=== PATIENT | female | born 1995 | race Hispanic/Latino ===

== ENCOUNTER → 2016-09-14 | Outpatient (CLI) | payer OTHER ==
[~2016-09-14] MED LIST: Prenatal vitamin PO
[2016-09-14 15:21] LABS: MEAN CORPUSCULAR HEMOGLOBIN 31.6 pg (27.0-33.0); MEAN CORPUSCULAR HGB CONC 34.4 g/dl (32.0-36.5); RED CELL DISTRIBUTION WIDTH 12.1 % (11.5-14.5); WHITE BLOOD COUNT 6.4 K/mm3 (4.0-10.0)
[2016-09-14 15:46] LABS: ALBUMIN 3.8 GM/DL (3.2-5.2); ALBUMIN/GLOBULIN RATIO 1.31 (1.00-1.93); ALKALINE PHOSPHATASE 66 U/L (45-117); ALT/SGPT 13 U/L (12-78); ANION GAP 5 MEQ/L (8-16); AST/SGOT 11 U/L (15-37); BILIRUBIN,TOTAL 0.6 MG/DL (0.2-1.0); BLOOD UREA NITROGEN 7 MG/DL (7-18); CALCIUM LEVEL 8.5 MG/DL (8.5-10.1); CARBON DIOXIDE LEVEL 27 MEQ/L (21-32); CHLORIDE LEVEL 106 MEQ/L (98-107); CREATININE FOR GFR 0.71 MG/DL (0.55-1.02); GLOMERULAR FILTRATION RATE > 60.0 (>60); GLUCOSE, FASTING 91 MG/DL (70-105); HCG, SERUM QUANTITATIVE 674 MIU/ML; POTASSIUM SERUM 3.9 MEQ/L (3.5-5.1); SODIUM LEVEL 138 MEQ/L (136-145); TOTAL PROTEIN 6.7 GM/DL (6.4-8.2)
--- NOTE | 2016-09-14 16:56 | REP ---
Obstetric ultrasound with transabdominal, endovaginal and Doppler ultrasound assessment: The bladder is nondistended. The uterus is retroverted and normal size measuring 8.8-5.5 x 5.5 cm. The endometrium is not thickened measuring 12 mm. However, there is a 1.0 centimeter by 1.5 cm sub endometrial fluid collection which could be subendometrial small hematoma. The ovaries are normal size. Right ovary measures 3.6 x 2.5 x 2.9 cm. Left ovary measures 3.2 x 3.0 x 1.9 cm. There is a complex right ovarian cyst measuring 2.5 cm. There is vascular flow in both ovaries with the Doppler resistive index of the intraparenchymal arteries on the right measuring 0.44 on the left. 0.19. There is free fluid in the left adnexa adjacent to the ovary. Impression: There is no intrauterine gestation. There is a complex right adnexal cyst measuring up to 2.5 cm. There is a 1.5 cm subendometrial hematoma. There is free fluid in the left adnexa. Ectopic gestation cannot be entirely discounted. Follow-up is recommended. Signed by Isidro Morales MD 09/14/2016 04:47 P
== END ==
LOC: M LAB 14:55
PROVIDERS: ATTEND Obstetrics & Gynecology
DX: Z34.81 Encounter for supervision of other normal pregnancy, first trimester (principal)

== ENCOUNTER → 2016-09-20 | Outpatient (CLI) | payer OTHER | LOC: M LAB 15:16 | PROVIDERS: ATTEND Obstetrics & Gynecology | DX: O00.80 Other ectopic pregnancy without intrauterine pregnancy (principal) ==

== ENCOUNTER → 2016-10-10 | Outpatient (CLI) | payer OTHER ==
--- NOTE | 2016-10-10 16:02 | REP ---
First trimester obstetric ultrasound for dating and viability: The study is performed with transabdominal and endovaginal imaging. The bladder is adequately distended. There is an intrauterine gestational sac with a pole. The heart rate is 84 beats per minute. The pole crown-rump length is 0.4 cm corresponding to 6 weeks 1 day gestational age. The SHERICE is 06/04/2017. There is no subchorionic hematoma. The maternal adnexa and cul-de-sac are unremarkable. There is a normal size yolk sac measuring 2.8 mm in diameter. Signed by Isidro Morales MD 10/10/2016 03:54 P
== END ==
LOC: M RAD 14:03
PROVIDERS: ATTEND Student in an Organized Health Care Education/Training Program
DX: Z34.81 Encounter for supervision of other normal pregnancy, first trimester (principal); Z3A.00 Weeks of gestation of pregnancy not specified

== ENCOUNTER 2016-10-26 00:50 | Emergency (ER) | payer OTHER ==
[~2016-10-26] VITALS: Ht 162.6 cm; Wt 59.1 kg
[2016-10-26 00:57] VITALS: BP 135/80
[2016-10-26] MEDS ORDERED: Prenatal vitamin PO (00:59)
[2016-10-26 01:25] LABS: BASO % 0.6 % (0.0-1.0); EOS # 0.1 K/mm3 (0.0-0.50); EOS % 2.2 % (0.0-3.0); LARGE UNSTAINED CELL # 0.1 K/mm3 (0.0-0.4); LARGE UNSTAINED CELL % 1.9 % (0.0-4.0); LYMPH % 29.2 % (24.0-44.0); MEAN CORPUSCULAR HEMOGLOBIN 31.1 pg (27.0-33.0); MEAN CORPUSCULAR HGB CONC 34.6 g/dl (32.0-36.5); MEAN CORPUSCULAR VOLUME 89.7 fl (80.0-96.0); MONO # 0.4 K/mm3 (0.0-0.8); MONO % 5.7 % (0.0-5.0); NEUTROPHILS # 3.9 K/mm3 (1.8-7.7); NEUTROPHILS % 60.5 % (36.0-66.0); PLATELET COUNT, AUTOMATED 246 k/mm3 (150-450); RED CELL DISTRIBUTION WIDTH 12.1 % (11.5-14.5); WHITE BLOOD COUNT 6.5 K/mm3 (4.0-10.0)
[2016-10-26] MEDS ORDERED: KETOROLAC 30 MG/ML VIAL (J1885) IV ONE (01:30)
--- NOTE | 2016-10-26 02:20 | REPUSA ---
CLINICAL HISTORY: Vaginal bleeding. TECHNIQUE: Transabdominal ultrasound of the pelvis was performed. FINDINGS: The uterus is normal in size measuring 11.9x5.9x6.7 cm. Intrauterine gestational sac is noted. Mean gestational sac diameter measures 26.8 mm. This correspon ds to an estimated gestation age of 7 weeks and 5 days. This is an irregular gestational sac. A pole measures 6 mm. This corresponds to an estimated gestational age of 6 weeks and 3 days. Absent cardiac activity. The ovaries were not visualized. Limited evaluation secondary to gaseous bowel distention. Impression: Irregular gestational sac. Absent cardiac activity. IMPRESSION: Single active fetus of [ ] weeks.
== END 2016-10-26 03:23 | disposition home or self-care (01) ==
LOC: M ED 00:50
DX: O20.0 Threatened abortion (principal); Z3A.08 8 weeks gestation of pregnancy
CPT/HCPCS: 76801; 84702; 85025; 86901; 96374; 99283; J1885